=== PATIENT | male | born 1985 | race Caucasian/White ===

== ENCOUNTER 2017-09-24 13:08 | Emergency (ER) | payer MEDICAID ==
--- NOTE | 2017-09-24 15:00 | EDM.PDOCBH ---
<Souleymane Villalpando - Last Filed: 09/24/17 18:27> ED HPI GENERAL MEDICAL PROBLEM - General Chief Complaint: Behavioral/Psych Stated Complaint: EVAL Time Seen by Provider: 09/24/17 13:30 Source of Information: Reports: Patient, Family History Limitations: Reports: Altered Mental Status, Intoxication - History of Present Illness INITIAL COMMENTS - FREE TEXT/NARRATIVE: 32-year-old male with chronic manic depression and also chronic substance abuse disorder presented to his mom earlier today saying he was going to the clinic because he needed some help. He went to the clinic, he was disoriented and manic so they called the police, and he did not wait he went back home. His mom then brought him into the emergency room. He is very cooperative, nonviolent, but has a extremely short attention span, obviously hallucinating and at times delusional carrying on conversations with himself. His chief complaint is that his blood is too thick, it's not moving, and there is something wrong around his heart. His mother has been dealing with this issue off and on for many years , he was discharged from [facility] several weeks ago and she thinks he was on medication but he won't take it as an outpatient. He has been at [facility] in the past for stabilization. Severity: Moderate Associated Symptoms: Denies: Fever/Chills, Headaches, Malaise, Shortness of Breath, Weakness - Related Data Allergies Allergy/AdvReac Type Severity Reaction Status Date / Time Penicillins Allergy Cannot Verified 09/24/17 13:45 Remember Home Meds: Home Meds NK [No Known Home Meds] 09/24/17 [History] Past Medical History - Past Health History Medical/Surgical History: Denies Medical/Surgical History Neurological History: Reports: Other (See Below) Other Neuro History: comes in with delusional ideation - 'speaking to a crowd' that wasnt there - wants to save the world - family history of schitzophrenia - pt is not diagnosed at this time - brought in by law enforcement - Psychiatric History: Reports: Other (See Below) Other Psychiatric History: per mother history of depression not diagnosed. recent losses in family and friend Social & Family History - Family History Psychiatric: Reports: Schizophrenia - Tobacco Use Smoking Status *Q: Current Some Day Smoker Years of Tobacco use: 15 Packs/Tins Daily: 0.2 - Caffeine Use Caffeine Use: Reports: None - Recreational Drug Use Recreational Drug Use: Yes Recreational Drug Type: Reports: Marijuana/Hashish Recreational Drug Use Frequency: Weekly ED ROS GENERAL - Review of Systems Review Of Systems: Unable To Obtain (Review of systems is not reliable from the patient's acute manic state and intoxication with methamphetamine) ED EXAM, BEHAVIORAL HEALTH - Physical Exam Exam: See Below Exam Limited By: Altered Mental Status General Appearance: Alert, No Apparent Distress, Anxious Eye Exam: Bilateral Eye: EOMI, Normal Inspection Respiratory/Chest: No Respiratory Distress, Lungs Clear Cardiovascular: Regular Rate, Rhythm Extremities: Normal Inspection. No: Pedal Edema Neurological: Alert, Disoriented to Time Psychiatric: Restless, Disoriented, Inattentive, Flight of Ideas Skin Exam: Warm, Dry COURSE, BEHAVIORAL HEALTH COMP - Course Vital Signs: Last Vital Signs Temp 97.0 F 09/24/17 13:50 Pulse 99 09/24/17 13:50 Resp 16 09/24/17 13:50 BP 139/105 H 09/24/17 13:50 Pulse Ox 95 09/24/17 13:50 Orders, Labs, Meds: Laboratory Tests 09/24/17 09/24/17 09/24/17 Range/Units 13:47 14:21 14:21 WBC 14.4 H (4.5-11.0) K/uL RBC 4.93 (4.30-5.90) M/uL Hgb 14.9 (12.0-15.0) g/dL Hct 43.5 (40.0-54.0) % MCV 88 (80-98) fL MCH 30 (27-31) pg MCHC 34 (32-36) % Plt Count 277 (150-400) K/uL Neut % (Auto) 74 H (36-66) % Lymph % (Auto) 15 L (24-44) % [place] % (Auto) 10 H (2-6) % Eos % (Auto) 1 L (2-4) % Baso % (Auto) 0 (0-1) % Sodium 140 (140-148) mmol/L Potassium 3.9 (3.6-5.2) mmol/L Chloride 102 (100-108) mmol/L Carbon Dioxide 27 (21-32) mmol/L Anion Gap 11.1 (5.0-14.0) mmol/L BUN 19 H (7-18) mg/dL Creatinine 0.9 (0.8-1.3) mg/dL Est Cr Clr Drug Dosing 129.33 mL/min Estimated GFR (MDRD) > 60 (>60) Glucose 95 (74-106) mg/dL Calcium 9.3 (8.5-10.1) mg/dL Urine Opiates Screen Negative (NEGATIVE) Ur Oxycodone Screen Negative (NEGATIVE) Urine Methadone Screen Negative (NEGATIVE) Ur Propoxyphene Screen Negative (NEGATIVE) Ur Barbiturates Screen Negative (NEGATIVE) Ur Tricyclics Screen Negative (NEGATIVE) Ur Phencyclidine Scrn Negative (NEGATIVE) Ur Amphetamine Screen Positive H (NEGATIVE) U Methamphetamines Scrn Positive H (NEGATIVE) Urine MDMA Screen Negative (NEGATIVE) U Benzodiazepines Scrn Negative (NEGATIVE) U Cocaine Metab Screen Negative (NEGATIVE) U Marijuana (THC) Screen Positive H (NEGATIVE) Ethyl Alcohol mg/dL 09/24/17 Range/Units 14:21 WBC (4.5-11.0) K/uL RBC (4.30-5.90) M/uL Hgb (12.0-15.0) g/dL Hct (40.0-54.0) % MCV (80-98) fL MCH (27-31) pg MCHC (32-36) % Plt Count (150-400) K/uL Neut % (Auto) (36-66) % Lymph % (Auto) (24-44) % [place] % (Auto) (2-6) % Eos % (Auto) (2-4) % Baso % (Auto) (0-1) % Sodium (140-148) mmol/L Potassium (3.6-5.2) mmol/L Chloride (100-108) mmol/L Carbon Dioxide (21-32) mmol/L Anion Gap (5.0-14.0) mmol/L BUN (7-18) mg/dL Creatinine (0.8-1.3) mg/dL Est Cr Clr Drug Dosing mL/min Estimated GFR (MDRD) (>60) Glucose (74-106) mg/dL Calcium (8.5-10.1) mg/dL Urine Opiates Screen (NEGATIVE) Ur Oxycodone Screen (NEGATIVE) Urine Methadone Screen (NEGATIVE) Ur Propoxyphene Screen (NEGATIVE) Ur Barbiturates Screen (NEGATIVE) Ur Tricyclics Screen (NEGATIVE) Ur Phencyclidine Scrn (NEGATIVE) Ur Amphetamine Screen (NEGATIVE) U Methamphetamines Scrn (NEGATIVE) Urine MDMA Screen (NEGATIVE) U Benzodiazepines Scrn (NEGATIVE) U Cocaine Metab Screen (NEGATIVE) U Marijuana (THC) Screen (NEGATIVE) Ethyl Alcohol < 3 mg/dL Re-Assessment/Re-Exam: Urine tox screen was obtained and was positive for methamphetamines and marijuana. The rest of his labs were reassuring. Patient is amenable to care, and his mother is extremely anxious to get him some inpatient help and stabilization. We were still waiting to hear feedback from Charu Abernathy at shift change. Care was turned over to Dr. Morel pending disposition. Departure - Departure Disposition: DC/Tfer to Inpt Rehab Fac 62 Clinical Impression: Methamphetamine abuse, Manic behavior - Discharge Information Referrals: PCP,None [Primary Care Provider] - Forms: ED Department Discharge <Cas Morel - Last Filed: 09/24/17 20:03> Departure - Departure Time of Disposition: 20:03 Condition: Fair - Assessment/Plan Plan: Assessment Acuity = acute Site and laterality = methamphetamine abuse Etiology = methamphetamine and cannabis Manifestations = hallucinations, manic behavior Location of injury = Home Lab values = WBC elevated at 14.4 consistent with leukocytosis, urine drug screen positive for methamphetamine and cannabis Plan He was declined by [facility] felt he was not appropriate for their facility, this gentleman is manic with methamphetamine in his system unsure if this is related to underlying mental illness or the recreational drug use therefore he is taking is a good candidate for detoxication first we're able to secure him a bed at [facility] he will be transported there this evening This note was dictated using [employer] voice recognition software please call with any questions on syntax or alana.
== END 2017-09-24 20:42 ==
LOC: JP.ED 13:08
DX: F15.10 Other stimulant abuse, uncomplicated (principal); F30.9 Manic episode, unspecified; F10.129 Alcohol abuse with intoxication, unspecified; Y90.0 Blood alcohol level of less than 20 mg/100 ml; F17.210 Nicotine dependence, cigarettes, uncomplicated
CPT/HCPCS: 36415; 80048; 80305; 85025; 99284; G0480; 99285

== ENCOUNTER 2017-09-25 01:48 | Emergency (ER) | payer MEDICAID ==
[2017-09-25] MEDS ORDERED: Haloperidol Lactate 5 MG/ML SDV IM ONE (02:05)
[2017-09-25] MEDS ORDERED: LORazepam 2 MG/ML MDV IM ONE (02:05)
[2017-09-25] MEDS ORDERED: diphenhydrAMINE 50 MG/ML SDV IM ONE (02:05)
--- NOTE | 2017-09-25 03:09 | EDM.PDOCBH ---
ED HPI GENERAL MEDICAL PROBLEM - General Chief Complaint: Behavioral/Psych Stated Complaint: MEDICAL [facility]IA [facility] Time Seen by Provider: 09/25/17 03:00 Source of Information: Reports: Patient, Other History Limitations: Reports: Intoxication - History of Present Illness INITIAL COMMENTS - FREE TEXT/NARRATIVE: 32-year-old gentleman was earlier in the emergency department found to be using methamphetamine and cannabis as well as manic behavior with hallucinations were unsuccessful with placement to [facility] initially tried placement at [place] for detoxification methamphetamine unfortunately they felt he was too disruptive for their treatment facility they provided to no medications he was keeping other clients up giggling and laughing while pretending to drive a car around the room was sent back to the emergency department for further treatment and evaluation. While in the emergency department he is still laughing and giggling pretending to drive but he describes as his bus Denies Pain Score (Numeric/FACES): 0 - Related Data Allergies Allergy/AdvReac Type Severity Reaction Status Date / Time Penicillins Allergy Cannot Verified 09/25/17 01:59 Remember Home Meds: Home Meds NK [No Known Home Meds] 09/24/17 [History] Past Medical History Neurological History: Reports: Other (See Below) Other Neuro History: comes in with delusional ideation - 'speaking to a crowd' that wasnt there - wants to save the world - family history of schitzophrenia - pt is not diagnosed at this time - brought in by law enforcement - Psychiatric History: Reports: Other (See Below) Other Psychiatric History: per mother history of depression not diagnosed. recent losses in family and friend Social & Family History - Family History Psychiatric: Reports: Schizophrenia - Tobacco Use Smoking Status *Q: Current Some Day Smoker Years of Tobacco use: 15 Packs/Tins Daily: 0.2 Used Tobacco, but Quit: No Second Hand Smoke Exposure: No - Caffeine Use Caffeine Use: Reports: None - Recreational Drug Use Recreational Drug Use: Yes Recreational Drug Type: Reports: Marijuana/Hashish Recreational Drug Use Frequency: Weekly ED ROS GENERAL - Review of Systems Review Of Systems: Unable To Obtain ED EXAM, BEHAVIORAL HEALTH - Physical Exam Exam: See Below Exam Limited By: Intoxication General Appearance: Alert, No Apparent Distress Eye Exam: Bilateral Eye: Normal Inspection Respiratory/Chest: No Respiratory Distress, Lungs Clear, Normal Breath Sounds, No Accessory Muscle Use Cardiovascular: Regular Rate, Rhythm, No Murmur GI/Abdominal: Soft, Non-Tender COURSE, BEHAVIORAL HEALTH COMP - Course Vital Signs: Last Vital Signs Temp 95.7 F 09/25/17 18:29 Pulse 86 09/25/17 18:29 Resp 16 09/25/17 18:29 BP 138/88 09/25/17 18:29 Pulse Ox 96 09/25/17 18:29 Orders, Labs, Meds: Medications Discontinued Medications Generic Name Dose Route Start Last Admin Trade Name Annie PRN Reason Stop Dose Admin Diphenhydramine HCl 50 mg 09/25/17 02:05 09/25/17 02:26 Benadryl IM 09/25/17 02:06 50 mg ONETIME ONE Administration Haloperidol Lactate 5 mg 09/25/17 02:05 09/25/17 02:26 Haldol IM 09/25/17 02:06 5 mg ONETIME ONE Administration Lorazepam 2 mg 09/25/17 02:05 09/25/17 02:25 Ativan IM 09/25/17 02:06 2 mg ONETIME ONE Administration Re-Assessment/Re-Exam: Due to his behavior he was given 50 mg of Benadryl, 5 mg Haldol 2 mg Ativan after this a combination of medications he was then resting comfortably in caught in room #8 Departure - Departure Time of Disposition: 18:47 Disposition: Home, Self-Care 01 Condition: Poor Clinical Impression: Methamphetamine abuse - Discharge Information Referrals: PCP,None [Primary Care Provider] - Forms: ED Department Discharge Additional Instructions: Please return to the emergency department if you would like help with your methamphetamine addiction - Assessment/Plan Plan: Assessment Acuity = chronic Site and laterality = methamphetamine abuse and dependence Etiology = methamphetamine Manifestations = poor decision-making none Location of injury = Home Lab values = [lists important lab values] Plan I did have a discussion with his mom she informed me that he is homeless at this time I offered him a place to stay I offered to try and get him help he is orientated 3 denies that he wants to help he feels he can beat his method addiction by himself and would like to be discharged This note was dictated using [employer] voice recognition software please call with any questions on syntax or alana.
== END 2017-09-25 18:57 | disposition home or self-care (01) ==
LOC: JP.ED 01:48
DX: F15.20 Other stimulant dependence, uncomplicated (principal); F17.210 Nicotine dependence, cigarettes, uncomplicated; Z88.0 Allergy status to penicillin
CPT/HCPCS: 96372; 99285; J1200; J1630; J2060; 99284